=== PATIENT | male | born 1990 | race African-American/Black ===

== ENCOUNTER 2021-02-28 05:12 | Emergency (ER) | payer MEDICAID ==
[~2021-02-28] VITALS: Ht 180.3 cm; Wt 105.0 kg
[2021-02-28 05:20] VITALS: BP 120/76
[2021-02-28] MEDS ORDERED: CEFTRIAXONE SODIUM 500 MG/VIAL IM ONE (06:15)
[2021-02-28] MEDS ORDERED: LIDOCAINE HCL 1% 20ML VIAL (Pyxis) INJ INFIL ONE (06:15)
[2021-02-28] MEDS ORDERED: AZITHROMYCIN 500 MG TABLET PO ONE (06:15)
[2021-02-28 06:25] LABS: CLARITY URINE CLOUDY (CLEAR); COLOR URINE YELLOW (YELLOW); KETONES URINE TRACE (NEGATIVE); LEUKOCYTE ESTERASE URINE 3+ (NEGATIVE); NITRITE URINE NEGATIVE (NEGATIVE); OCCULT BLOOD URINE 1+ (NEGATIVE); PH URINE 5.5 (4.5-8.0); PROTEIN URINE TRACE (NEGATIVE); SPECIFIC GRAVITY URINE 1.026 (1.005-1.030)
[2021-03-02 04:08] LABS: NEISSERIA GONORRHOEAE NAA Positive (Negative)
== END 2021-02-28 06:52 | disposition home or self-care (01) ==
LOC: ER 05:12 → EDBD 05:12 → ER 06:52
DX: N34.2 Other urethritis (principal); Z20.2 Contact with and (suspected) exposure to infections with a predominantly sexual mode of transmission; F12.10 Cannabis abuse, uncomplicated; F17.210 Nicotine dependence, cigarettes, uncomplicated
CPT/HCPCS: 81003; 87077; 87086; 87491; 87591; 96372; 99283; J0696; J3490

== ENCOUNTER 2021-10-17 05:06 | Emergency (ER) | payer MEDICAID ==
[2021-10-17] MEDS ORDERED: CIPR-263 MT ×2 (07:55)
[2021-10-17] MEDS ORDERED: LIDOCAINE HCL 1% 20ML VIAL (Pyxis) INJ INFIL ONE (08:00)
[2021-10-17] MEDS ORDERED: CEFTRIAXONE SODIUM 500 MG/VIAL IM ONE (08:00)
[2021-10-17] MEDS ORDERED: AZITHROMYCIN 500 MG TABLET PO ONE (08:00)
[2021-10-17] MEDS ORDERED: LIDOCAINE HCL 1% 10 MG/ML 10ML VIAL IJ ONE (08:00)
[2021-10-17 08:11] LABS: CLARITY URINE CLOUDY (CLEAR); COLOR URINE DARK YELLOW (YELLOW); KETONES URINE TRACE (NEGATIVE); LEUKOCYTE ESTERASE URINE 2+ (NEGATIVE); NITRITE URINE NEGATIVE (NEGATIVE); OCCULT BLOOD URINE TRACE (NEGATIVE); PROTEIN URINE TRACE (NEGATIVE); SPECIFIC GRAVITY URINE 1.033 (1.005-1.030)
== END 2021-10-17 08:07 | disposition home or self-care (01) ==
LOC: ER 05:06
DX: N39.0 Urinary tract infection, site not specified (principal); Z20.2 Contact with and (suspected) exposure to infections with a predominantly sexual mode of transmission; Z86.19 Personal history of other infectious and parasitic diseases
CPT/HCPCS: 81003; 87086; 87591; 96372; 99283; J0696; J3490